=== PATIENT | male | born 1985 | race Caucasian/White ===

== ENCOUNTER 2018-02-23 13:25 | Emergency (ER) | payer MEDICAID ==
[~2018-02-23] VITALS: Ht 182.8 cm; Wt 99.8 kg
[~2018-02-23 13:25] MED LIST: ADDERALL 20 MG20 MG PO; NORCO 325 MG-101 TAB PO; PROZAC20 MG PO; VYVANSE60 MG PO; ZOLOFT100 MG PO
[2018-02-23] MEDS ORDERED: PROZAC40 M1 PO (13:55)
[2018-02-23] MEDS ORDERED: VISTARIL50 MG PO (13:55)
[2018-02-23] MEDS ORDERED: SEPTDS PO (13:55)
[2018-02-24] MEDS ORDERED: SEPTDS PO (11:06)
== END 2018-02-23 14:00 | disposition home or self-care (01) ==
LOC: ED 13:25
DX: L02.211 Cutaneous abscess of abdominal wall (principal); Z76.0 Encounter for issue of repeat prescription; Z79.899 Other long term (current) drug therapy; Z86.14 Personal history of Methicillin resistant Staphylococcus aureus infection

== ENCOUNTER 2018-02-23 19:20 | Emergency (ER) | payer MEDICAID ==
[~2018-02-23] VITALS: Ht 182.8 cm; Wt 99.8 kg
[~2018-02-23 19:20] MED LIST changes: +PROZAC40 M1 PO; +SEPTDS PO; +VISTARIL50 MG PO
[2018-02-23 19:37] LABS: BASO % 0.3 % (0.0-1.0); EOS % 0.6 % (1.0-4.0); HEMATOCRIT 44.8 % (42.0-52.0); HEMOGLOBIN 15.1 g/dl (14.0-18.0); LYMPH # 1.6 10*3/uL (1.3-4.4); LYMPH % 25.5 % (27.0-41.0); MEAN CELL VOLUME 84.1 fl (80.0-94.0); MEAN CORPUSCULAR HGB 28.3 pg (27.0-31.0); MEAN CORPUSCULAR HGB CONC 33.7 g/dl (33.0-37.0); MEAN PLATELET VOLUME 9.2 fl (9.6-12.3); MONO # 0.7 10*3/uL (0.1-1.0); MONO % 11.9 % (3.0-9.0); NEUT # 3.8 10*3/uL (2.3-7.9); NEUT % 61.5 % (47.0-73.0); PLATELET COUNT AUTOMATED 408 10*3/uL (130-400); RED BLOOD COUNT 5.33 10*6/uL (4.50-5.90); RED CELL DISTRI WIDTH 13.1 % (0-14.5); WHITE BLOOD COUNT 6.2 10*3/uL (4.8-10.8)
[2018-02-23 19:50] LABS: BUN 4 mg/dl (7-24); CHLORIDE 108 mmol/L (98-107); CREATININE 1.05 mg/dL (0.70-1.30); SODIUM 144 mmol/L (136-145)
[2018-02-23 19:51] LABS: ACETAMINOPHEN (TYLENOL) < 2.0 ug/ml (10-30); ETHYL ALCOHOL < 3.0 mg/dl (<3)
[2018-02-23 20:16] LABS: BILIRUBIN 2+ (NEGATIVE); BLOOD TRACE-INTACT (NEGATIVE); CLARITY CLEAR (CLEAR); COLOR YELLOW (YELLOW); GLUCOSE NEGATIVE (NEGATIVE); KETONE TRACE (NEGATIVE); LEUKO ESTERASE NEGATIVE (NEGATIVE); NITRITE NEGATIVE (NEGATIVE); PH 6.5 (5.0-9.0); SPECIFIC GRAVITY 1.015 (1.005-1.030)
[2018-02-23 20:24] LABS: BACTERIA 2+; MUCOUS TRACE; RBC 0-2 rbc/hpf (0-2)
[2018-02-23 20:28] LABS: URINE AMPHETAMINES < 1000 (1000ng/ml); URINE BARBITURATES < 200 (200ng/ml); URINE BENZODIAZEPINES < 200 (200ng/ml); URINE CANNABINOIDS (THC) < 50 (50ng/ml); URINE COCAINE > 300 (300ng/ml); URINE METHADONE < 300 (300ng/ml); URINE OPIATES < 300 (300ng/ml); URINE PHENCYCLIDINE < 25 (25ng/ml)
[2018-02-24] MEDS ORDERED: SEPTDS PO (11:06)
== END 2018-02-24 11:36 | disposition home or self-care (01) ==
LOC: ED 19:20
PROVIDERS: Emergency Medicine
DX: R45.851 Suicidal ideations (principal); F32.9 Major depressive disorder, single episode, unspecified; F19.10 Other psychoactive substance abuse, uncomplicated; F11.23 Opioid dependence with withdrawal; L02.214 Cutaneous abscess of groin; Z79.899 Other long term (current) drug therapy

== ENCOUNTER 2018-03-16 19:16 | Emergency (ER) | payer MEDICAID ==
[~2018-03-16] VITALS: Ht 182.8 cm; Wt 99.8 kg
--- NOTE | ~2018-03-16 | EKG ---
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
[2018-03-16 19:46] LABS: BASO % 0.4 % (0.0-1.0); EOS % 0.4 % (1.0-4.0); HEMATOCRIT 43.3 % (42.0-52.0); HEMOGLOBIN 14.7 g/dl (14.0-18.0); LYMPH # 1.9 10*3/uL (1.3-4.4); MEAN CELL VOLUME 83.8 fl (80.0-94.0); MEAN CORPUSCULAR HGB 28.4 pg (27.0-31.0); MEAN CORPUSCULAR HGB CONC 33.9 g/dl (33.0-37.0); MEAN PLATELET VOLUME 8.8 fl (9.6-12.3); MONO # 0.7 10*3/uL (0.1-1.0); NEUT # 4.4 10*3/uL (2.3-7.9); NEUT % 61.9 % (47.0-73.0); PLATELET COUNT AUTOMATED 432 10*3/uL (130-400); RED BLOOD COUNT 5.17 10*6/uL (4.50-5.90); RED CELL DISTRI WIDTH 13.2 % (0-14.5); WHITE BLOOD COUNT 7.1 10*3/uL (4.8-10.8)
[2018-03-16 19:53] LABS: BILIRUBIN NEGATIVE (NEGATIVE); BLOOD NEGATIVE (NEGATIVE); CLARITY CLEAR (CLEAR); COLOR YELLOW (YELLOW); GLUCOSE NEGATIVE (NEGATIVE); KETONE NEGATIVE (NEGATIVE); LEUKO ESTERASE NEGATIVE (NEGATIVE); NITRITE NEGATIVE (NEGATIVE); SPECIFIC GRAVITY <= 1.005 (1.005-1.030)
[2018-03-16 19:58] LABS: BACTERIA 1+; EPITHELIAL CELLS 0-2; RBC 0-2 rbc/hpf (0-2)
[2018-03-16 19:58] LABS: BUN 6 mg/dl (7-24); CHLORIDE 109 mmol/L (98-107); CREATININE 1.07 mg/dL (0.70-1.30); POTASSIUM 3.9 mmol/L (3.5-5.1); SODIUM 142 mmol/L (136-145)
[2018-03-16 20:02] LABS: URINE AMPHETAMINES < 1000 (1000ng/ml); URINE BARBITURATES < 200 (200ng/ml); URINE BENZODIAZEPINES < 200 (200ng/ml); URINE CANNABINOIDS (THC) > 50 (50ng/ml); URINE COCAINE > 300 (300ng/ml); URINE METHADONE < 300 (300ng/ml); URINE OPIATES < 300 (300ng/ml)
[2018-03-16 20:03] LABS: URINE PHENCYCLIDINE < 25 (25ng/ml)
[2018-03-16 20:06] LABS: ACETAMINOPHEN (TYLENOL) < 2.0 ug/ml (10-30); ETHYL ALCOHOL < 3.0 mg/dl (<3)
== END 2018-03-18 12:04 | disposition home or self-care (01) ==
LOC: ED 19:16
PROVIDERS: Emergency Medicine Emergency Medical Services
DX: F19.10 Other psychoactive substance abuse, uncomplicated (principal); F32.9 Major depressive disorder, single episode, unspecified; F41.9 Anxiety disorder, unspecified; R45.851 Suicidal ideations; Z79.899 Other long term (current) drug therapy

== ENCOUNTER 2018-08-18 | Emergency (ER) | payer OTHER ==
--- NOTE | ~2018-08-18 | EKG ---
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
[2018-08-18 18:32] LABS: BASO % 0.3 % (0.0-1.0); EOS % 0.4 % (1.0-4.0); HEMATOCRIT 47.1 % (42.0-52.0); HEMOGLOBIN 16.2 g/dl (14.0-18.0); LYMPH # 1.5 10*3/uL (1.3-4.4); LYMPH % 21.3 % (27.0-41.0); MEAN CELL VOLUME 84.9 fl (80.0-94.0); MEAN CORPUSCULAR HGB 29.2 pg (27.0-31.0); MEAN CORPUSCULAR HGB CONC 34.4 g/dl (33.0-37.0); MEAN PLATELET VOLUME 9.5 fl (9.6-12.3); MONO # 0.6 10*3/uL (0.1-1.0); MONO % 9.3 % (3.0-9.0); NEUT # 4.7 10*3/uL (2.3-7.9); NEUT % 68.4 % (47.0-73.0); PLATELET COUNT AUTOMATED 297 10*3/uL (130-400); RED BLOOD COUNT 5.55 10*6/uL (4.50-5.90); RED CELL DISTRI WIDTH 13.3 % (0-14.5); WHITE BLOOD COUNT 6.9 10*3/uL (4.8-10.8)
[2018-08-18 18:48] LABS: ALBUMIN 4.2 gm/dl (3.1-4.5); ALKALINE PHOSPHATASE 91 U/L (45-117); BUN 12 mg/dl (7-24); CHLORIDE 106 mmol/L (98-107); CREATININE 1.01 mg/dL (0.70-1.30); POTASSIUM 4.2 mmol/L (3.5-5.1); SGOT/AST 167 IU/L (3-35); SGPT/ALT 292 U/L (12-78); SODIUM 139 mmol/L (136-145); TOTAL PROTEIN 7.8 gm/dL (6.4-8.2)
[2018-08-18 18:55] LABS: ACETAMINOPHEN (TYLENOL) < 5.0 ug/ml (10-30); ETHYL ALCOHOL < 3.0 mg/dl (<3)
[2018-08-18 19:41] LABS: URINE AMPHETAMINES < 1000 (1000ng/ml); URINE BARBITURATES < 200 (200ng/ml); URINE BENZODIAZEPINES < 200 (200ng/ml); URINE CANNABINOIDS (THC) > 50 (50ng/ml); URINE COCAINE > 300 (300ng/ml); URINE METHADONE < 300 (300ng/ml); URINE OPIATES < 300 (300ng/ml)
[2018-08-18 19:45] LABS: URINE PHENCYCLIDINE < 25 (25ng/ml)
[2018-08-19 08:44] LABS: BILIRUBIN NEGATIVE (NEGATIVE); BLOOD NEGATIVE (NEGATIVE); CLARITY SL CLOUDY (CLEAR); COLOR YELLOW (YELLOW); GLUCOSE NEGATIVE (NEGATIVE); KETONE 1+ (NEGATIVE); LEUKO ESTERASE NEGATIVE (NEGATIVE); NITRITE NEGATIVE (NEGATIVE); SPECIFIC GRAVITY >= 1.030 (1.005-1.030)
[2018-08-19 09:00] LABS: BACTERIA TRACE; EPITHELIAL CELLS 0-2; MUCOUS 1+; RBC 0-2 rbc/hpf (0-2)
== END 2018-08-19 14:11 | disposition home or self-care (01) ==
PROVIDERS: Emergency Medicine; Physician Assistant
DX: F32.9 Major depressive disorder, single episode, unspecified (principal); R45.851 Suicidal ideations; F19.10 Other psychoactive substance abuse, uncomplicated; Z59.0 Homelessness; Z79.899 Other long term (current) drug therapy